=== PATIENT | male | born 1945 | race Caucasian/White ===

== ENCOUNTER → 2016-07-19 | Outpatient (CLI) | payer BC ==
[~2016-07-19] MED LIST: AMIL5TAB15 PO; ATEN-173 PO; ATOR10TA88 PO; FINA5TAB PO; LEVO50TA6 PO; OXYC-57 PO; PANT40TA PO; POTA1TAB97 PO
--- NOTE | 2016-07-19 12:55 | DIAGNOSTIC IMAGING REPORT ---
ABDOMINAL ULTRASOUND COMPLETE HISTORY: Pain R14.2,R11.0,R10.13,R10.13,K22.7. COMPARISON: None. FINDINGS: Pancreas: The pancreas demonstrates a normal echotexture. Liver: Fatty infiltration Gallbladder: Prior cholecystectomy CBD: 4 mm Kidneys: No hydronephrosis. Spleen: Normal in size. Aorta: Normal in caliber. IVC: Patent. IMPRESSION: 1. Fatty infiltration of liver. 2. Small right renal cyst. 3. Otherwise negative study status post cholecystectomy Electronically signed by: Jorge Luis Myirck M.D. 07/19/2016 12:54 PM Dictated Date/Time: 07/19/2016 12:28 PM
== END | disposition home or self-care (01) ==
LOC: C.ULTR 11:20
PROVIDERS: ATTEND Internal Medicine Gastroenterology
DX: R14.2 Eructation (principal); R11.0 Nausea; R10.13 Epigastric pain; K22.70 Barrett's esophagus without dysplasia; K76.0 Fatty (change of) liver, not elsewhere classified; Z90.49 Acquired absence of other specified parts of digestive tract

== ENCOUNTER → 2016-10-27 | Outpatient (CLI) | payer BC ==
[~2016-10-27] MED LIST changes: +ATOR10TA82 PO; -ATOR10TA88 PO; -OXYC-57 PO
--- NOTE | 2016-10-27 14:36 | DIAGNOSTIC IMAGING REPORT ---
KUB HISTORY: Right-sided kidney stones. Follow-up. N40.1 Benign prostatic hyperplasia with urinary [id number] COMPARISON: KUB 04/22/2016. FINDINGS: The bowel gas pattern is unremarkable. There are no dilated loops of small bowel to suggest an obstruction. The 4 mm stone within the upper pole the right kidney is not identified and likely obscured by overlying bowel gas. No left renal calculi. No ureteral calculi. Calcifications in the deep pelvis likely represent phleboliths. These remain unchanged. No pneumoperitoneum or pneumatosis. Cholecystectomy. IMPRESSION: The 4 mm stone within the upper pole of the right kidney is not identified and likely obscured by overlying bowel gas. No left renal or ureteral calculi. Electronically signed by: Sammy Ornelas M.D. 10/27/2016 2:35 PM Dictated Date/Time: 10/27/2016 2:32 PM
== END | disposition home or self-care (01) ==
LOC: C.RAD 13:39
PROVIDERS: ATTEND Urology
DX: N40.1 Benign prostatic hyperplasia with lower urinary tract symptoms (principal); R33.9 Retention of urine, unspecified

== ENCOUNTER → 2017-02-21 | Outpatient (CLI) | payer BC ==
[~2017-02-21] MED LIST changes: -ATOR10TA82 PO; +ATOR10TA88 PO
== END | disposition home or self-care (01) ==
LOC: C.RDSM 11:48
PROVIDERS: ATTEND Orthopaedic Surgery
DX: M25.521 Pain in right elbow (principal)

== ENCOUNTER → 2017-04-23 | Outpatient (CLI) | payer BC ==
[~2017-04-23] MED LIST changes: +ATOR10TA82 PO; -ATOR10TA88 PO
--- NOTE | 2017-04-23 10:27 | DIAGNOSTIC IMAGING REPORT ---
THYROID ULTRASOUND HISTORY: Thyroid cancer. Follow-up. COMPARISON: None. FINDINGS: Right lobe: Surgically absent. No soft tissue masses within the thyroid bed. Left lobe: 5.0 x 1.7 x 1.6 cm. There is a 1.8 x 1.5 x 1.1 cm solid and cystic nodule within the lower pole. Posterior to this nodule there is a 9 x 5 x 7 mm hypoechoic nodule. No associated microcalcification within these nodules. Isthmus: 2 mm in thickness. No nodules. IMPRESSION: 1. Status post right thyroidectomy. No soft tissue masses within the thyroid bed. 2. Left thyroid nodules as described above which do not meet sonographic criteria for biopsy at this time. Continued follow-up is recommended. Electronically signed by: Sammy Ornelas M.D. 04/23/2017 10:25 AM Dictated Date/Time: 04/23/2017 10:23 AM
== END | disposition home or self-care (01) ==
LOC: C.ULTR 09:51
PROVIDERS: ATTEND Family Medicine
DX: C73 Malignant neoplasm of thyroid gland (principal)

== ENCOUNTER → 2017-07-31 | Outpatient (CLI) | payer MEDICARE ==
--- NOTE | 2017-07-31 15:42 | DIAGNOSTIC IMAGING REPORT ---
KUB HISTORY: Kidney stones. COMPARISON: KUB 10/27/2016. FINDINGS: The bowel gas pattern is unremarkable. There are no dilated loops of small bowel to suggest an obstruction. There are few punctate stones within the right kidney. There appears be a punctate stone within the lower pole of the left kidney. No pneumoperitoneum or pneumatosis. IMPRESSION: Bilateral nephrolithiasis. No ureteral calculi. Electronically signed by: Sammy Ornelas M.D. 07/31/2017 3:41 PM Dictated Date/Time: 07/31/2017 3:39 PM
--- NOTE | 2017-08-08 10:40 | CODING QUERY MEDICAL NECESSITY ---
SUPPORTING DIAGNOSIS NEEDED A supporting diagnosis is required for the test/procedure performed on this patient in order for us to be reimbursed by the patient's insurance. Please provide a supporting diagnosis for the following test/procedure listed below next to the test name along with your signature. *If there is no additional diagnosis for this patient that would support the following test/procedure please document that below next to the test/procedure. Test(s)/Procedure(s) that require a supporting diagnosis: DOS: 07/31/17 * PSA DIAGNOSIS: Provider Signature: Date: Thank you Corrine [place] [facility] Information Management Once completed, please kindly fax back to [phone] For questions please call [phone]
== END | disposition home or self-care (01) ==
LOC: C.RAD 14:54
PROVIDERS: ATTEND Urology
DX: N20.0 Calculus of kidney (principal)

== ENCOUNTER → 2017-08-11 | Outpatient (CLI) | payer MEDICARE ==
[~2017-08-11] MED LIST changes: +OPTIRAY 320 IV PRN
--- NOTE | 2017-08-11 15:51 | DIAGNOSTIC IMAGING REPORT ---
CT SCAN OF THE ABDOMEN AND PELVIS WITH IV CONTRAST CLINICAL HISTORY: Gastroesophageal reflux disease. COMPARISON STUDY: Abdominal CT dated 04/20/2012. TECHNIQUE: Following the IV administration of 92 cc of Optiray 320, CT scan of the abdomen and pelvis is performed from the lung bases to the proximal femora. Images are reviewed in the axial, sagittal, and coronal planes. IV contrast was administered without complication. A dose lowering technique was utilized adhering to the principles of ALARA. CT DOSE: 801.20 mGy.cm FINDINGS: Lung bases: The heart is mildly enlarged and without pericardial effusion. Calcified mediastinal lymph nodes are partially visualized. The lung bases are clear. There is a tiny hiatal hernia. Liver: The contrast-enhanced liver is normal in size, contour, and attenuation. There is no intrahepatic biliary ductal dilatation. The hepatic veins and portal veins are patent. Gallbladder: Surgically absent noting clips in the gallbladder fossa. Spleen: Normal in size and attenuation. Pancreas: Unremarkable. Adrenal glands: Unremarkable. Kidneys: The contrast enhanced kidneys demonstrate mild cortical atrophy and are without hydronephrosis. The kidneys enhance symmetrically. A 2.4 cm simple cyst is seen in the interpolar left kidney. Additional subcentimeter cortical hypodensities also likely represent cysts but are too small for definitive characterization. Small nonobstructing calculi are identified in both kidneys and measure up to 3 mm. Abdominal vasculature: The abdominal aorta is normal in course and caliber noting scattered foci of atherosclerotic calcification. Bowel: There is mild colonic diverticulosis without CT evidence of acute diverticulitis. Mild to moderate colonic fecal retention is observed. No bowel obstruction is seen. The appendix is well-visualized and normal. Peritoneum: There is no intraperitoneal free air or abdominal ascites. There is a small fat-containing umbilical hernia. Lymphadenopathy: None. Pelvic viscera: The prostate gland is mildly enlarged and heterogeneous, measuring 5 cm in transverse diameter. The bladder is normal as imaged. Small bilateral fat-containing inguinal hernias are noted. Surgical clips are seen along the spermatic cord bilaterally. Skeletal structures: The skeletal structures are osteopenic. Mild lumbosacral spondylosis is observed. Degenerative change is also seen in the sacroiliac joints. A bone island is incidentally noted in the right ilium. No lytic or blastic lesions are seen. IMPRESSION: 1. There are no acute infectious or inflammatory findings in the abdomen or pelvis. 2. Small hiatal hernia. 3. Cardiomegaly. 4. There are small bilateral nonobstructing renal calculi. 5. Mild colonic diverticulosis without CT evidence of acute diverticulitis. 6. Mild to moderate colonic fecal retention. 7. Additional findings as above. Electronically signed by: Elmer Foreman M.D. 08/11/2017 3:50 PM Dictated Date/Time: 08/11/2017 3:42 PM
== END | disposition home or self-care (01) ==
LOC: C.CTS 13:09
PROVIDERS: ATTEND Family Medicine
DX: R19.06 Epigastric swelling, mass or lump (principal); K21.9 Gastro-esophageal reflux disease without esophagitis; I51.7 Cardiomegaly; K44.9 Diaphragmatic hernia without obstruction or gangrene